=== PATIENT | male | born 1955 | race Caucasian/White ===

== ENCOUNTER 2019-06-14 10:15 | Outpatient (RCR) | payer MEDICARE, MEDICAID, SELFPAY ==
[2019-06-14 21:59] LABS: HIV 1 & 2 Antibody Non-Reactive (Non-Reactiv); HIV 1 & 2 Antigen Non-Reactive (Non-Reactiv)
== END 2019-07-07 23:59 | disposition home or self-care (01) ==
LOC: LAB 10:15
PROVIDERS: Family Provider Family Medicine; Visit Provider Dermatology
DX: L89.90 Pressure ulcer of unspecified site, unspecified stage (principal)

== ENCOUNTER 2019-06-26 12:55 | Outpatient (RCR) | payer MEDICAID, SELFPAY ==
[2019-06-26 14:50] LABS: Estmated Average Glucose 146; Hemoglobin A1C 6.7 % (4.0-6.0)
== END 2019-07-07 23:59 | disposition home or self-care (01) ==
LOC: LAB 12:55
PROVIDERS: Family Provider Family Medicine; Referring Provider Family Medicine; Visit Provider Family Medicine
DX: G30.9 Alzheimer's disease, unspecified (principal); E11.628 Type 2 diabetes mellitus with other skin complications; R05 Cough
CPT/HCPCS: 83036